=== PATIENT | male | born 2000 | race Caucasian/White ===

== ENCOUNTER 2018-01-31 04:17 | Inpatient (IN) | END 2018-02-07 11:44 | disposition home or self-care (01) | DRG 872 ==

== ENCOUNTER 2019-01-06 14:08 | Emergency (ER) | payer MEDICAID, OTHER ==
[~2019-01-06] VITALS: Ht 167.6 cm; Wt 62.1 kg
[~2019-01-06 14:08] MED LIST: SULF-182 PO
[2019-01-06 14:11] VITALS: Ht 167.6 cm; Wt 62.1 kg
[2019-01-06] MEDS ORDERED: ACET500C5 PO (15:40)
[2019-01-06] MEDS ORDERED: MUPI22OI2 TOP (15:40)
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
[2019-01-06] MEDS ORDERED: BACITRACIN 0.9 GM OINT ONE (15:53)
[2019-01-06 15:55] VITALS: BP 121/51; PULSE 82; RESP 20
== END 2019-01-06 16:11 | disposition home or self-care (01) ==
LOC: FTE 14:08
DX: S50.812A Abrasion of left forearm, initial encounter (principal); S00.81XA Abrasion of other part of head, initial encounter; V89.2XXA Person injured in unspecified motor-vehicle accident, traffic, initial encounter
CPT/HCPCS: Z7502; Z7610; 99283